=== PATIENT | female | born 1960 | race Caucasian/White ===

== ENCOUNTER 2019-05-14 13:00 | Outpatient (CLI) | payer OTHER, SELFPAY ==
--- NOTE | 2019-05-14 13:06 | XR_ITS ---
WS: [id number] LEFT KNEE: 3 VIEW(S) TECHNIQUE: AP, oblique(s) and lateral. HISTORY: SPRAIN OF MCL OF KNEE, KNEE PAIN, LEFT, ACUTE COMPARISON: None available. No fracture or dislocation. No joint space narrowing or osteophytes. No joint effusion. No soft tissue abnormality. XR/XR knee LT 3V* [id number] IMPRESSION: Normal LEFT knee.
== END 2019-05-14 13:01 | disposition home or self-care (01) ==
LOC: RADWPI 13:04
PROVIDERS: Family Provider Electrodiagnostic Medicine; PCP Electrodiagnostic Medicine; Referring Provider Electrodiagnostic Medicine; Visit Provider Electrodiagnostic Medicine
DX: S83.411A Sprain of medial collateral ligament of right knee, initial encounter (principal); M25.562 Pain in left knee; X58.XXXA Exposure to other specified factors, initial encounter
CPT/HCPCS: 73562

== ENCOUNTER 2020-01-24 11:51 | Outpatient (CLI) | payer OTHER, SELFPAY ==
--- NOTE | 2020-01-24 11:59 | XR_ITS ---
WS: [id number] CHEST 2 VIEWS HISTORY: ASPIRATION PNEUMONIA COMPARISON: 07/23/2016 Lungs: Clear with no abnormality. No pleural effusion or pneumothorax. Again noted are small coils un changed in position of the LEFT hilum. Cardiac size: Normal. Mediastinum/Aorta: Mild atherosclerosis aorta. Bones: Normal. XR/XR chest 2V* [id number] IMPRESSION: 1. Mild emphysema. No pneumonia. 2. Mild atherosclerosis aorta.
== END 2020-01-24 11:52 | disposition home or self-care (01) ==
LOC: RADWPI 11:54
PROVIDERS: Family Provider Electrodiagnostic Medicine; PCP Electrodiagnostic Medicine; Visit Provider Electrodiagnostic Medicine
DX: J69.0 Pneumonitis due to inhalation of food and vomit (principal); J43.9 Emphysema, unspecified; I70.0 Atherosclerosis of aorta
CPT/HCPCS: 71046

== ENCOUNTER 2020-06-20 06:54 | Outpatient (CLI) | payer OTHER, SELFPAY ==
--- NOTE | 2020-06-20 07:12 | USCV_ITS ---
Fang Corral Age: 59 Gender: F : 1960 Exam Date: 06/20/2020 07:20 Ordering Phys: Titi Mejía DO Technologist: Mauricio Catalan Exam Location: [facility] [place] Indication: CARDIAC ARRHYTHMIA BP: / HR: Rhythm: Sinus Technical Quality: Adequate MEASUREMENTS (Male / Female) Normal Values 2D ECHO LV Diastolic Diameter PLAX 4.4 cm 4.2 - 5.9 / 3.9 - 5.3 cm LV Systolic Diameter PLAX 2.3 cm IVS Diastolic Thickness 1.2 cm 0.6 - 1.0 / 0.6 - 0.9 cm IVS Systolic Thickness 1.5 cm LVPW Diastolic Thickness 1.1 cm 0.6 - 1.0 / 0.6 - 0.9 cm LVPW Systolic Thickness 1.6 cm LVOT Diameter 2.1 cm LV Ejection Fraction 2D Teich 79.6 % LV Ejection Fraction MOD 2C 57.2 % LV Ejection Fraction 2C AL 57.9 % LA Diameter 3.3 cm LA Width 2.7 cm LA Height 4.4 cm RA Width 2.9 cm RA Height 4.1 cm M-MODE LV Diastolic Diameter MM 4.7 cm 4.2 - 5.9 / 3.9 - 5.3 cm LV Systolic Diameter MM 3.0 cm LV Ejection Fraction MM Teich 66.2 % IVS Diastolic Thickness MM 1.2 cm 0.6 - 1.0 / 0.6 - 0.9 cm IVS Systolic Thickness MM 1.8 cm LVPW Diastolic Thickness MM 1.1 cm 0.6 - 1.0 / 0.6 - 0.9 cm LVPW Systolic Thickness MM 2.0 cm RV Diastolic Diameter MM 1.7 cm Aortic Annulus Diameter 3.3 cm LA Ao Ratio MM 1.1 MV E Point Septal Separation 1.0 cm DOPPLER AV Peak Velocity 183.0 cm/s LVOT Peak Velocity 94.0 cm/s AV Area Cont Eq vti 2.1 cm squared AV Area Cont Eq pk 1.8 cm squared MV Area PHT 5.0 cm squared Mitral E to A Ratio 0.6 MV E' Velocity 33.0 cm/s Mitral E to MV E' Ratio 7.1 Mitral E to LV E' Lateral Ratio 8.2 Mitral E to LV E' Septal Ratio 6.2 TR Peak Velocity 221.0 cm/s TR Peak Gradient 19.5 mmHg TV Peak E Velocity 89.0 cm/s Right Atrial Pressure 3.0 mmHg Pulmonary Artery Systolic Pressu 22.5 mmHg PV Peak Velocity 104.0 cm/s FINDINGS Left Ventricle Normal left ventricular size, systolic function and mildy increased wall thickness, with no regional wall motion abnormalities. Left ventricular ejection fraction is estimated at 66 %. Normal diastolic function. Right Ventricle Normal right ventricular size and systolic function. Right ventricular systolic pressure 22.5 mmHg. Right Atrium Normal right atrial size. Left Atrium Normal left atrial size. Mitral Valve Structurally normal mitral valve. No mitral valve stenosis. Trace mitral valve regurgitation. Aortic Valve Aortic valve not well visualized. No aortic valve stenosis. [id number] aortic valve regurgitation. Tricuspid Valve Structurally normal tricuspid valve. Pulmonic Valve Pulmonic valve not well visualized. Trace pulmonary valve regurgitation. Pericardium No pericardial effusion. Aorta Normal size aortic root and proximal ascending aorta. CONCLUSIONS 1. Normal left ventricular size, systolic function and mildy increased wall thickness, with no regional wall motion abnormalities. Left ventricular ejection fraction is estimated at 66 %. Normal diastolic function. 2. Normal right ventricular size and systolic function. 3. [id number] aortic valve regurgitation. 4. No prior similar studies to compare. Sapphire Serrano MD (Electronically Signed) Final Date: 20 June 2020 20:13 S
== END 2020-06-20 06:55 | disposition home or self-care (01) ==
LOC: RAD 06:55
PROVIDERS: PCP Electrodiagnostic Medicine; Visit Provider Electrodiagnostic Medicine
DX: I49.9 Cardiac arrhythmia, unspecified (principal); R73.9 Hyperglycemia, unspecified; I35.1 Nonrheumatic aortic (valve) insufficiency
CPT/HCPCS: 93306

== ENCOUNTER 2020-06-24 12:00 | Outpatient (CLI) | payer OTHER, SELFPAY | END 2020-06-24 12:01 | disposition home or self-care (01) | LOC: SLEEP 06-25 12:12 | PROVIDERS: PCP Electrodiagnostic Medicine; Visit Provider Electrodiagnostic Medicine | DX: G47.33 Obstructive sleep apnea (adult) (pediatric) (principal); R73.9 Hyperglycemia, unspecified; I49.9 Cardiac arrhythmia, unspecified; J30.9 Allergic rhinitis, unspecified | CPT/HCPCS: G0399 ==

== ENCOUNTER 2021-11-16 13:17 | Outpatient (CLI) | payer OTHER, SELFPAY ==
--- NOTE | 2021-11-16 13:24 | MM_ITS ---
WS: [id number] BILATERAL 3D TOMOSYNTHESIS DIGITAL SCREENING MAMMOGRAPHY WITH CAD CLINICAL INFORMATION: SCREENING HISTORY: Screening mammogram. No current complaints. COMPARISON: September 20, 2017 TECHNIQUE: Bilateral CC and MLO views. FINDINGS: Scattered fibroglandular densities bilaterally. Incidental punctate calcifications. No suspicious foc al mass, asymmetry, calcifications, or architectural distortion. No evidence of malignancy. MM/[place] [id number] IMPRESSION: BI-RADS: 2-Benign FOLLOW UP: 1 Year Follow-up Recommend return to annual screening mammography.
== END 2021-11-16 13:18 | disposition home or self-care (01) ==
PROVIDERS: PCP Electrodiagnostic Medicine; Visit Provider Electrodiagnostic Medicine
DX: Z12.31 Encounter for screening mammogram for malignant neoplasm of breast (principal)
CPT/HCPCS: 77063; 77067

== ENCOUNTER → 2022-02-01 10:16 | Outpatient (BNVA) | payer OTHER, SELFPAY | PROVIDERS: PCP Electrodiagnostic Medicine; Visit Provider Internal Medicine | DX: M10.9 Gout, unspecified (principal); K75.9 Inflammatory liver disease, unspecified; L40.9 Psoriasis, unspecified; M19.041 Primary osteoarthritis, right hand; M47.896 Other spondylosis, lumbar region | CPT/HCPCS: 72100; 72202; 73030; 73120 ==

== ENCOUNTER → 2022-11-09 10:00 | Outpatient (BNVA) | payer OTHER, SELFPAY | PROVIDERS: PCP Electrodiagnostic Medicine; Visit Provider Internal Medicine | DX: M19.90 Unspecified osteoarthritis, unspecified site (principal); M10.9 Gout, unspecified | CPT/HCPCS: 73560 ==

== ENCOUNTER 2022-11-19 13:20 | Outpatient (CLI) | payer OTHER, SELFPAY ==
--- NOTE | 2022-11-19 13:30 | US_ITS ---
WS: [id number] INDICATION: Mass medial distal LEFT thigh seen on radiograph TECHNIQUE: Ultrasound soft tissue area of concern COMPARISON: Radiograph November 09, 2022 FINDINGS: Ultrasound medial distal LEFT thigh in the area of prior radiographic abnormality. No evide nce of soft tissue mass or lesion in the medial LEFT thigh. No fluid collections. Normal underlying s ubcutaneous soft tissues and muscle tissue. No visualized abnormalities. US/US soft tissue/extremity [id number] IMPRESSION: 1. No visualized abnormalities in the area of concern. 2. Opacity seen on radiograph may have been external to the patient. Lesion wa s not present on the 2019 LEFT knee radiograph. 3. Recommend repeat LEFT knee x-ray to confirm resolution of the previously de scribed lesion
== END 2022-11-19 13:21 | disposition home or self-care (01) ==
PROVIDERS: PCP Electrodiagnostic Medicine; Visit Provider Internal Medicine
DX: M10.9 Gout, unspecified (principal); M19.90 Unspecified osteoarthritis, unspecified site
CPT/HCPCS: 76882

== ENCOUNTER 2023-09-01 15:53 | Outpatient (RCR) | payer OTHER, SELFPAY | END 2023-09-30 23:59 | disposition home or self-care (01) | LOC: SPT 15:53 | PROVIDERS: Visit Provider Orthopaedic Surgery | DX: Z47.1 Aftercare following joint replacement surgery (principal); Z96.652 Presence of left artificial knee joint | CPT/HCPCS: 97110; 97161 ==